=== PATIENT | male | born 1985 | race Two or more races ===

== ENCOUNTER 2023-04-19 21:11 | Emergency (ER) | payer OTHER ==
[~2023-04-19] VITALS: Ht 185.4 cm; Wt 109.0 kg
[2023-04-20] MEDS ORDERED: TETANUS-DIPTH-ACEL PERTUSSIS 0.5ML SYR Tdap IM ONE (00:30)
[2023-04-20] MEDS ORDERED: IBUP-1456 PO (00:37)
[2023-04-20] MEDS ORDERED: CEPH500C PO (00:37)
[2023-04-20 01:45] VITALS: BP 115/77; PULSE 84; RESP 18; TEMP 97.9; O2SAT 98
== END 2023-04-20 01:45 | disposition home or self-care (01) ==
LOC: ER 21:13
DX: S81.811A Laceration without foreign body, right lower leg, initial encounter (principal); I10 Essential (primary) hypertension; W18.09XA Striking against other object with subsequent fall, initial encounter; Y93.89 Activity, other specified; Y92.090 Kitchen in other non-institutional residence as the place of occurrence of the external cause; Y99.8 Other external cause status
CPT/HCPCS: 12002; 90471; 90715

== ENCOUNTER 2024-06-02 19:16 | Emergency (ER) | payer BC ==
[~2024-06-02] VITALS: Ht 188 cm; Wt 108.7 kg
[~2024-06-02 19:16] MED LIST: CEPH500C PO; IBUP-1456 PO
--- NOTE | 2024-06-02 20:43 | ED.PDOC ---
Back pain HPI HPI Comments 39 y.o male presents to the ED for a chief complaint of mid back pain that started today. Patient reports pain is sharp, worsens with movement and when sitting down. Patient states he might have strained his back when attempting to pass a bowel movement since he was constipated one week ago. Patient states today pain came on set spontaneously with no trauma or falls noted and reports developing sweats with elevated blood pressure of 163/96 at home. No fever, chills, abdominal pain, nausea or vomiting reported. No history of chronic back. Chief Complaint: Flank Pain Time Seen by MD: 20:24 Primary Care Provider: UNKNOWN Reviewed Notes: Nurses Notes, Medications, Allergies Allergies: Coded Allergies: NO KNOWN ALLERGIES (Unverified , 04/19/23) Home Meds Active Scripts Ibuprofen (Ibuprofen) 800 Mg Tab, 1 TAB PO TID PRN, #30 TAB 0 Refills Prov:KAREN BHARDWAJ 04/20/23 Cephalexin Monohydrate (Cephalexin) 500 Mg Cap, 1 CAP PO BID for 7 Days, #14 CAP 0 Refills Prov:KAREN BHARDWAJ 04/20/23 Information Source: Patient Mode of Arrival: Ambulatory Timing: Hours Duration: Since onset Quality: Sharp Onset: Spontaneous History of: None Modifying Factors: Nothing Past Medical History PAST MEDICAL HISTORY: HTN Surgical History: Denies all surgeries Family History Family History: Unknown Social History Smoker: Non-Smoker Alcohol: Denies ETOH Use Drugs: Denies Drug Use Lives In: Home Constitutional: denies: chills, diaphoresis, fatigue, fever, malaise, sweats, weakness, others EENTM: denies: blurred vision, double vision, ear bleeding, ear discharge, ear drainage, ear pain, ear ringing, eye pain, eye redness, hearing loss, mouth pain, mouth swelling, nasal discharge, nose bleeding, nose congestion, nose pain, photophobia, tearing, throat pain, throat swelling, voice changes, others Respiratory: denies: cough, hemoptysis, orthopnea, SOB at rest, shortness of breath, SOB with excertion, stridor, wheezing, others Cardiovascular: denies: chest pain, dizzy spells, diaphoresis, Dyspnea on exertion, edema, irregular heart beat, left arm pain, lightheadedness, palpitations, PND, syncope, others Gastrointestinal: denies: abdomen distended, abdominal pain, blood streaked bowels, constipated, diarrhea, dysphagia, difficulty swallowing, hematemesis, melena, nausea, poor appetite, poor fluid intake, rectal bleeding, rectal pain, vomiting, others Genitourinary: denies: burning, dysuria, flank pain, frequency, hematuria, incontinence, penile discharge, penile sore, pain, testicle pain, testicle swelling, urgency, others Neurological: denies: dizziness, fainting, headache, left sided numbness, left sided weakness, numbness, paresthesia, pre-existing deficit, right sided numbness, right sided weakness, seizure, speech problems, tingling, tremors, weakness, others Musculoskeletal: reports: back pain; denies: gout, joint pain, joint swelling, muscle pain, muscle stiffness, neck pain, others Integumetry: denies: bruises, change in color, change in hair/nails, dryness, laceration, lesions, lumps, rash, wounds, others Allergic/Immunocompromised: denies: Difficulty Healing, Frequent Infections, Hives, Itching, others Hematologic/Lymphatic: denies: anemia, blood clots, easy bleeding, easy bruising, swollen glands, others Endocrine: denies: excessive hunger, excessive sweating, excessive thirst, excessive urination, flushing, intolerance to cold, intolerance to heat, unexplained weight gain, unexplained weight loss, others Psychiatric: denies: anxiety, bipolar disorder, depression, hopeless, panic disorder, schizophrenia, sleepless, suicidal, others All Other Systems: Reviewed and Negative Physical Exam General Appearance: Moderate Distress HEENT: NOT DONE Neck: Normal Inspection Respiratory: Chest Non-Tender, Lungs Clear, No Accessory Muscle Use, No Respiratory Distress, Normal Breath Sounds Cardiovascular: Normal Peripheral Pulses, Regular Rate/Rhythm Breast Exam: Deferred Gastrointestinal: Non Tender, Soft Genitalia: Deferred Pelvic: Deferred Rectal: Deferred Extremities: Normal inspection Musculoskeletal : Location: Left Extremity Location: Back Apperance: Tenderness: Moderate, Other (papule muscle spasm to the lumbar region. 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 Was a procedure done?: No Back Pain Differential Dx Differential Diagnosis: Musculoskeletal Pain, Other (sprain, strain, muscle spasm ) X-Ray, Labs, Meds, VS Vital Signs Date Time Temp Pulse Resp B/P (MAP) Pulse Ox O2 Delivery O2 Flow Rate FiO2 06/02/24 19:54 97.8 61 20 158/86 (110) 10 X-Ray, Labs, Meds, VS Comment This 39 year male presents secondary to left-sided back pain that is worse with certain movements. He states it is somewhat better with rest and standing still. It occurred when he was pushing to have a bowel movement. He has no other complaints such as numbness tingling to his extremities. Denies retention guidance feces or urine. Denies radiation of his symptoms. Physical exam was significant for straightening of the lumbar lordosis and thoracic kyphosis. There is a palpable spasm of the paraspinal muscles. Palpation reveals recreates his pain. Fourteen, there is no other findings such as steps, deformity or pain to the vertebra. Secondary to the history and physical exam, with the patient has a spasm to his left lumbar paraspinal muscles. He will be discharged home with a prescription for Flexeril and Tylenol. He is asked to see for her Hydrea could be urine clear. He should have electrolyte rich diet. She consider gentle stretching. He was provided strict return instructions. If he has any new/worse with worsening symptoms, he is asked to return to the ER or call 911. He states his understanding. Otherwise, he should follow up with PCP next 1 2 days Time of 1ST Reevaluation: 20:37 Reevaluation 1ST: Unchanged Patient Education/Counseling: Diagnosis, Treatment, Prognosis Family Education/Counseling: No Family Present Departure 1 Departure Time of Disposition: 20:55 Impression: Primary Impression: Back pain Additional Impression: Back muscle spasm Disposition: HOME / SELF CARE / HOMELESS Condition: Good Discharged With: Self Critical Care Note Critical Care Time?: No Stability Stability form required: No I personally scribed for OG KITCHEN MD ([email or web address]) on 06/02/24 at 20:43. Electronically submitted by Jacey Lu ([facility]). OG KITCHEN MD Jun 02, 2024 20:43
[2024-06-02] MEDS ORDERED: CYCL-837 PO (20:54)
[2024-06-02] MEDS ORDERED: ACET1CAP14 PO (20:54)
[2024-06-02 23:05] VITALS: BP 158/97; PULSE 67; RESP 16; TEMP 98; O2SAT 97
== END 2024-06-02 23:07 | disposition home or self-care (01) ==
LOC: ER 19:16
DX: M54.9 Dorsalgia, unspecified (principal); M62.830 Muscle spasm of back; I10 Essential (primary) hypertension; Z79.899 Other long term (current) drug therapy

== ENCOUNTER 2024-06-15 10:40 | Inpatient (IN) | payer BC ==
[~2024-06-15] VITALS: Ht 185.4 cm; Wt 107.5 kg
--- NOTE | 2024-06-15 11:41 | ECG ---
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
[2024-06-15 12:31] LABS: Urine Bacteria None Seen /hpf (None Seen)
--- NOTE | 2024-06-15 12:34 | ED.PDOC ---
GI ASSESSMENT HPI Comments 39y M who presents to the ED for chief complaint of abdominal pain. Pt states he has been having R sided abdominal pain for the past 2 weeks. Pt stattes the pain is 10/10, constant, sharp in nature, radiating to the R flank, with no associated exacerbating or relieving factors. Pt otherwise has noted R sided flank pain, but otherwise denies nausea, vomiting, diarrhea, fever, cough, chills, dysuria, or hematuria. Pt states he was seen at 2 weeks prior for similar complaints and dx with muscle spasms but states he was not given pain Meds. Pt states he went to local clinic recently and dx with kidney stones. Pt otherwise noted to be in pain and is noted to ambulating with cane due to his pain. Pt otherwise denies any other symptoms at this time. Chief Complaint: Abdominal Pain Time Seen by MD: 12:31 Primary Care Provider: UNKNOWN Reviewed Notes: Nurses Notes, Medications, Allergies Allergies: Coded Allergies: NO KNOWN ALLERGIES (Unverified , 04/19/23) Home Meds Active Scripts Ibuprofen (Ibuprofen) 800 Mg Tab, 1 TAB PO TID PRN, #30 TAB 0 Refills Prov:KAREN BHARDWAJ 04/20/23 Cephalexin Monohydrate (Cephalexin) 500 Mg Cap, 1 CAP PO BID for 7 Days, #14 CAP 0 Refills Prov:KAREN BHARDWAJ 04/20/23 Information Source: Patient Mode of Arrival: Ambulatory Brought in by: self Timing: Weeks Duration: Since onset Prehospital treatment: None Quality: Aching, Sharp Vomitus: None Stool: Normal Severity: Moderate Recent: None Recent Hx of: None Pain Location: RLQ Modifying Factors: Nothing Associated sign and symptoms: Abdominal Pain, Other (flank pain) Past Medical History PAST MEDICAL HISTORY: HTN Surgical History: Denies all surgeries Family History Family History: Unknown Social History Smoker: Non-Smoker Alcohol: Denies ETOH Use Drugs: Denies Drug Use Lives In: Home Constitutional: denies: chills, diaphoresis, fatigue, fever, malaise, sweats, weakness, others EENTM: denies: blurred vision, double vision, ear bleeding, ear discharge, ear drainage, ear pain, ear ringing, eye pain, eye redness, hearing loss, mouth p ain, mouth swelling, nasal discharge, nose bleeding, nose congestion, nose pain, photophobia, tearing, throat pain, throat swelling, voice changes, others Respiratory: denies: cough, hemoptysis, orthopnea, SOB at rest, shortness of br eath, SOB with excertion, stridor, wheezing, others Cardiovascular: denies: chest pain, dizzy spells, diaphoresis, Dyspnea on exertion, edema, irregular heart beat, left arm pain, lightheadedness, palpitations, PND, syncope, others Gastrointestinal: reports: abdominal pain; denies: abdomen distended, blood streaked bowels, constipated, diarrhea, dysphagia, difficulty swallowing, hematemesis, melena, nausea, poor appetite, poor fluid intake, rectal bleeding, rectal pain, vomiting, others Genitourinary: reports: flank pain; denies: burning, dysuria, frequency, hematuria, incontinence, penile discharge, penile sore, pain, testicle pain, testicle swelling, urgency, others Neurological: denies: dizziness, fainting, headache, left sided numbness, left sided weakness, numbness, paresthesia, pre-existing deficit, right sided numbness, right sided weakness, seizure, speech problems, tingling, tremors, weakness, others Musculoskeletal: denies: back pain, gout, joint pain, joint swelling, muscle pain, muscle stiffness, neck pain, others Integumetry: denies: bruises, change in color, change in hair/nails, dryness, laceration, lesions, lumps, rash, wounds, others Allergic/Immunocompromised: denies: Difficulty Healing, Frequent Infections, Hives, Itching, others Hematologic/Lymphatic: denies: anemia, blood clots, easy bleeding, easy bruising, swollen glands, others Endocrine: denies: excessive hunger, excessive sweating, excessive thirst, excessive urination, flushing, intolerance to cold, intolerance to heat, unexplained weight gain, unexplained weight loss, others Psychiatric: denies: anxiety, bipolar disorder, depression, hopeless, panic dis order, schizophrenia, sleepless, suicidal, others All Other Systems: Reviewed and Negative Physical Exam General Appearance: Moderate Distress HEENT: Normal ENT Inspection, Pharynx Normal, TMs Normal Neck: Full Range of Motion, Non-Tender, Normal, Normal Inspection Respiratory: Chest Non-Tender, Lungs Clear, No Accessory Muscle Use, No Respiratory Distress, Normal Breath Sounds Cardiovascular: No Edema, No JVD, No Murmur, No Gallop, Normal Peripheral Pulses, Regular Rate/Rhythm Breast Exam: Deferred Gastrointestinal: No Organomegaly, No Pulsatile Mass, Normal Bowel Sounds, RUQ, Soft, Tenderness Genitalia: Deferred Pelvic: Deferred Rectal: Deferred Extremities: No calf tenderness, Normal capillary refill, Normal inspection, Normal range of motion, Non-tender, No pedal edema Musculoskeletal : Apperance: Normal Neurologic: Alert, cleaning crew member II-XII nml as Tested, No Motor Deficits, Normal Affect, Normal Mood, No Sensory Deficits Cerebellar Function: Normal Reflexes: Normal Skin: Dry, Normal Color, Warm Lymphatic: No Adenopathy Was a procedure done? Was a procedure done?: No GI differential Dx Differential Diagnosis: Appendicitis, Gastritis/PUD, Gastroenteritis, Pancreatitis, UTI, Urolithiasis, Dehydration, Stress Ulcer, Kidney Stone X-Ray, Labs, Meds, VS Vital Signs Date Time Temp Pulse Resp B/P (MAP) Pulse Ox O2 Delivery O2 Flow Rate FiO2 06/15/24 15:15 98.4 67 16 123/87 (99) 97 98.4 06/15/24 14:59 98.3 74 17 144/89 (107) 74 98.3 06/15/24 12:58 98.3 90 17 145/94 (111) 97 98.3 06/15/24 12:58 90 17 97 Room Air 06/15/24 11:26 77 06/15/24 11:24 97.9 127 19 176/137 (150) 98 Lab Test 06/15/24 13:15 06/15/24 12:28 Range/Units White Blood Count 8.0 4.4-10.8 10^3/uL Red Blood Count 4.74 4.5-5.90 10^6/uL Hemoglobin 15.7 13.5-17.5 g/dL Hematocrit 45.7 41.0-53.0 % Mean Corpuscular Volume 96.4 80.0-100.0 fL Mean Corpuscular Hemoglobin 33.0 H 28.0-32.0 pg Mean Corpuscular Hemoglobin Concent 34.2 32.0-36.0 g/dL Red Cell Distribution Width 13.8 11.8-14.3 % Platelet Count 365 140-450 10^3/uL Mean Platelet Volume 7.3 6.9-10.8 fL Neutrophils (%) (Auto) 69.5 37.0-80.0 % Lymphocytes (%) (Auto) 22.7 10.0-50.0 % Monocytes (%) (Auto) 6.1 0.0-12.0 % Eosinophils (%) (Auto) 1.3 0.0-7.0 % Basophils (%) (Auto) 0.4 0.0-2.0 % Neutrophils # (Auto) 5.6 1.6-8.6 10 ^3/uL Lymphocytes # (Auto) 1.8 0.4-5.4 10 ^3/uL Monocytes # (Auto) 0.5 0-1.3 10 ^3/uL Eosinophils # (Auto) 0.1 0-0.8 10 ^3/uL Basophils # (Auto) 0 0-0.2 10 ^3/uL Nucleated Red Blood Cells 0.0 % Sodium Level 141 136-145 mmol/L Potassium Level 3.8 3.5-5.1 mmol/L Chloride Level 105 98-107 mmol/L Carbon Dioxide Level 27 20-31 mmol/L Anion Gap 9 5-15 Blood Urea Nitrogen 13 9-23 mg/dL Creatinine 0.89 0.700-1.30 mg/dL Glomerular Filtration Rate Calc 111 >90 mL/min BUN/Creatinine Ratio 14.6 10.0-20.0 Serum Glucose 102 74-106 mg/dL Calcium Level 10.5 H 8.7-10.4 mg/dL Total Bilirubin 0.7 0.2-1.0 mg/dL Aspartate Amino Transferase (AST) 17 13-40 U/L Alanine Aminotransferase (ALT) 41 H 7-40 U/L Alkaline Phosphatase 102 46-116 U/L Total Protein 7.5 5.7-8.2 g/dL Albumin 4.7 3.2-4.8 g/dL Lipase 27 12-53 U/L Urine Color Colorless Yellow Urine Clarity Clear Clear Urine pH 6.0 5.0-9.0 Urine Specific [place] 1.006 1.001-1.035 Urine Protein Negative Negative Urine Ketones Negative Negative Urine Blood Negative Negative /uL Urine Nitrite Negative Negative Urine Bilirubin Negative Negative Urine Urobilinogen Normal Negative mg/dL Urine Leukocyte Esterase Negative Negative /uL Urine RBC None seen 0 - 3 /hpf Urine WBC <1 0 - 3 /hpf Urine Squamous Epithelial Cells None seen <5 /hpf Urine Bacteria None seen None Seen /hpf Urine Glucose Normal Normal mg/dL Current Medications Medications (Trade) Dose Ordered Sig/Alix Route Start Time Stop Time Status Last Admin Ketorolac Tromethamine (Toradol Injection) 30 mg ONCE ONCE IV 06/15/24 12:30 06/15/24 12:31 DC 06/15/24 13:27 Exam: CT CT AB PEL WO CON-NO ORAL OR IV IMPRESSION: 1. No acute abdominal or pelvic finding. 2. Mildly distended gallbladder. If of clinical concern, could be further evaluated with right upper quadrant ultrasound. The ultrasound of the gallbladder shows: IMPRESSION: 1. Small 5 mm gallbladder wall polyp. 2. Nonvisualization of the pancreas and IVC. HS:Y The patient's CBC is within limits The chemistry panel is within limits The urine test is negative The patient was given ketorolac 30 mg push pain At this time the patient was being admitted to the hospitalist We have discussed the findings with the patient Pain has been somewhat persistent Images Reviewed?: Images reviewed and evaluated by me Time of 1ST Reevaluation: 13:00 Reevaluation 1ST: Unchanged Patient Education/Counseling: Diagnosis, Treatment, Prognosis Family Education/Counseling: No Family Present Additional Information I reviewed the following notes from patient's past medical encounters: The following tests were ordered, and results were reviewed by me: EKGx 1, CBC, CMP, Lipase, UA, CT abdomen and pelvis without contrast, Toradol 30 mg, Additional Information was gathered from interviewing the following independent historians: none I reviewed and agreed with the following test results read by other providers: radiologist I discussed treatment and results with medical personnel and: patient Departure 1 Departure Time of Disposition: 16:32 Impression: Primary Impression: Intractable abdominal pain Additional Impression: Cholelithiasis Qualified Codes: K80.20 - Calculus of gallbladder without cholecystitis without obstruction Disposition: ADMITTED INPATIENT Admit to: Med Surg Condition: Fair Critical Care Note Critical Care Time?: No Stability Stability form required: Yes Unstable for transfer: ED Physician Assesment (Clinical assesment) Heart Score Heart Score: Heart Score Response (Comments) Value History N/A 0 EKG N/A 0 Age N/A 0 Risk Factors N/A 0 Troponin N/A 0 Total 0 I personally scribed for DORA CARLOS MD ([email or web address]) on 06/15/24 at 12:34. Electronically submitted by Acacia Otero ([email or web address]). I personally scribed for DORA CARLOS MD ([email or web address]) on 06/15/24 at 13:14. El ectronically submitted by Acacia Otero ([email or web address]). DORA CARLOS MD Jun 15, 2024 12:34
--- NOTE | 2024-06-15 13:04 | DVH ---
Exam: CT CT AB PEL WO CON-NO ORAL OR IV History: right abd pain Comparison Study: None available at time of dictation. TECHNIQUE: Multidetector CT of the abdomen was performed from lung bases to pubic symphysis. Imaging was performed without IV contrast. Axial, coronal and sagittal multiplanar reformats were obtained fr om the axial data set by the technologist. Radiation Dose Information: CT Dose: CTDI volume is 16.84 mGy. Dose-length product is 1114.59 mGy*cm FINDINGS: Evaluation of solid organs is limited due to lack of intravenous contrast use. Findings: Lung Bases: No acute or significant lung base finding. Normal heart size. No pleural or pericardial effusion. Liver: The liver is normal in size. No focal lesions. Gallbladder and Biliary Tree: The gallbladder is somewhat distended. Spleen: Unremarkable Pancreas: The pancreas is grossly normal in appearance. Adrenal Glands: Unremarkable Kidneys: Kidneys are grossly normal without calculi or hydronephrosis. Bladder: Grossly unremarkable for degree of distention. Bowel: The stomach is grossly normal in appearance. Small bowel and colon are normal in caliber and d istribution. The appendix is not visualized; however, no secondary findings of acute appendicitis id entified. Ascites: Absent Lymphadenopathy: No mesenteric, retroperitoneal or periportal lymphadenopathy. Abdominal Wall and Mesentery: Unremarkable. Vasculature: The visualized abdominal aorta is normal in size and caliber. Evaluation of abdominal a nd pelvic vessels is limited due to lack of intravenous contrast. Pelvic Organs: Unremarkable Musculoskeletal: No aggressive focal bony lesions, acute fractures or dislocation. Soft tissues: Unremarkable IMPRESSION: 1. No acute abdominal or pelvic finding. 2. Mildly distended gallbladder. If of clinical concern, could be further evaluated with right upper quadrant ultrasound. Radiation optimization: All CT scans at this facility use at least one of these dose optimization te chniques: automated exposure control mA and/or kV adjustment per patient size (includes targeted exa ms where dose is matched to clinical indication) or iterative reconstruction. HS:Y
[2024-06-15 13:10] LABS: Urine Blood Negative /uL (Negative); Urine Clarity Clear (Clear); Urine Color Colorless (Yellow); Urine Protein, UAD Negative (Negative); Urine Specific Gravity 1.006 (1.001-1.035); Urine Urobilinogen Normal (Negative); Urine WBC <1 /hpf (0 - 3)
[2024-06-15 13:25] LABS: Basophils # (auto) 0 10 ^3/uL (0-0.2); Basophils % (auto) 0.4 % (0.0-2.0); Eosinophils # (auto) 0.1 10 ^3/uL (0-0.8); Eosinophils % (auto) 1.3 % (0.0-7.0); Hematocrit 45.7 % (41.0-53.0); Hemoglobin 15.7 g/dL (13.5-17.5); Lymphocytes # (auto) 1.8 10 ^3/uL (0.4-5.4); Lymphocytes % (auto) 22.7 % (10.0-50.0); Mean Corpuscular Hgb Conc. 34.2 g/dL (32.0-36.0); Mean Corpuscular Volume 96.4 fL (80.0-100.0); Monocytes # (auto) 0.5 10 ^3/uL (0-1.3); Monocytes % (auto) 6.1 % (0.0-12.0); Neutrophils # (auto) 5.6 10 ^3/uL (1.6-8.6); Neutrophils % (auto) 69.5 % (37.0-80.0); Platelet Count (auto) 365 10^3/uL (140-450); Red Blood Cells 4.74 10^6/uL (4.5-5.90); Red Cell Distribution Width 13.8 % (11.8-14.3)
[2024-06-15] MEDS: KETOROLAC TROMETH 30 MG/ML 1ML VIAL IV ONE (13:27)
[2024-06-15 13:43] LABS: Albumin 4.7 g/dL (3.2-4.8); Alkaline Phosphatase 102 U/L (46-116); Anion Gap 9 (5-15); Aspartate Aminotransferase 17 U/L (13-40); Bilirubin, Total 0.7 mg/dL (0.2-1.0); Carbon Dioxide 27 mmol/L (20-31); Chloride 105 mmol/L (98-107); Glucose 102 mg/dL (74-106); Lipase 27 U/L (12-53); Potassium 3.8 mmol/L (3.5-5.1); Sodium 141 mmol/L (136-145); Total Protein 7.5 g/dL (5.7-8.2)
[2024-06-15 13:51] LABS: Alanine Aminotransferase 41 U/L (7-40); Calcium 10.5 mg/dL (8.7-10.4)
[2024-06-15 14:02] LABS: BUN/Creatinine Ratio 14.6 (10.0-20.0); Blood Urea Nitrogen 13 mg/dL (9-23)
[2024-06-15 16:00] VITALS: PULSE 76; RESP 16; O2SAT 97
--- NOTE | 2024-06-15 16:30 | DVH ---
ULTRASOUND ABDOMEN COMPLETE INDICATION: pain TECHNIQUE: Multiple real-time sonographic images of the abdomen were obtained. COMPARISON: CT abdomen 06/15/2024 FINDINGS: [Findings] The visualized liver parenchyma appears homogenous . The liver measures 17.9 cm. No discrete hep atic lesion or intrahepatic biliary ductal dilatation not seen on the current study. There is a 5 mm gallbladder wall polyp. There is no evidence of gallstones, gallbladder wall thickeni ng or pericholecystic fluid. The common biliary duct is not dilated. The right kidney measures 11.3 cm length. The left kidney measures 10.6 cm. No sonographic evide nce of nephrolithiasis or hydronephrosis. The spleen measures 9.0 cm and appears within normal limits. Pancreas and IVC are obscured by bowel gas. The visualized portions of the abdominal aorta are grossly unremarkable. IMPRESSION: 1. Small 5 mm gallbladder wall polyp. 2. Nonvisualization of the pancreas and IVC. HS:Y
[2024-06-15] MEDS ORDERED: GABA-1251 PO (17:24)
[2024-06-15] MEDS ORDERED: LORA-483 PO (17:24)
[2024-06-15] MEDS ORDERED: LOSA100T33 PO (17:24)
[2024-06-15] MEDS ORDERED: TAMS1CAP25 PO (17:25)
[2024-06-15] MEDS ORDERED: DOCUSATE SOD 100 MG CAP PO PRN (17:30)
[2024-06-15] MEDS ORDERED: ACETAMINOPHEN 325 MG TAB PO PRN (17:30)
--- NOTE | 2024-06-15 17:49 | DVHHP2 ---
History of Present Illness Reason for Visit: Abdominal Pain History of Present Illness Ion Guillen, is a 39-year-old male with past medical history of hypertension, and knee pain that came to the ER due to abdominal pain. Patient states that he has been having right lower quadrant abdominal pain that radiates to his right flank for about 2 weeks. He was seen here in the ER about 2 weeks ago and diagnosed with muscle pain. The next day he went to an urgent care who told him he has a kidney stone. They started him on Flomax, gave him a referral to a urologist and sent him home. He came back today because he is not able to see the urologist until June and he is still experiencing the pain. CT of abd/pe lvis as well as abdominal ultrasound were completed and both came back normal, no kidney stone noted. Cardiovascular: HTN Past Surgical History: None Family History: None Smoke: No ALCOHOL: rare Drugs: None Lives: with Family Domestic Violence: Neg Review of Systems Constitutional: No: Fever, Chills, Sweats, Weakness, Malaise, Other Eyes: No: Pain, Vision change, Conjunctivae inflammation, Eyelid inflammation, Other, Redness ENT: No: Ear pain, Ear discharge, Nose pain, Nose discharge, Nose congestion, Mouth pain, Mouth swelling, Throat pain, Throat swelling, Other Respiratory: No: Cough, Dry, Shortness of breath, SOB with excertion, Wheezing, Hemoptysis, Pleuritic Pain, Sputum, Wheezing, Other Cardiovascular: No: Chest Pain, Palpitations, Orthopnea, Paroxysmal Noc. Dyspnea, Edema, Lt Headedness, Other Gastrointestinal: Abdominal Pain (that radiates to right flank); No: Nausea, Vomiting, Diarrhea, Constipation, Melena, Hematochezia, Other Genitourinary: No Dysuria, No Frequency, No Incontinence, No Hematuria, No Retention, No Other Musculoskeletal: No: other, neck pain, shoulder pain, arm pain, back pain, hand pain, leg pain, foot pain Skin: No: Rash, Lesions, Jaundice, Bruising, Other Neurological: No: Weakness, Numbness, Incoordination, Change in speech, Confusion, Seizures, Other Allergies: Coded Allergies: NO KNOWN ALLERGIES (Unverified , 04/19/23) Medications Current Medications Medications Dose Ordered Sig/Alix Route Start Time Stop Time Status Last Admin Dose Admin Sodium Chloride 10 ml Q8HR IV 06/15/24 22:00 UNV Acetaminophen/ Hydrocodone Bitart 1 tab Q4HP PRN PO 06/15/24 17:30 UNV Ondansetron HCl 4 mg Q4HP PRN IV 06/15/24 17:30 UNV Docusate Sodium 100 mg BIDPRN PRN PO 06/15/24 17:30 UNV Acetaminophen 650 mg Q6HP PRN PO 06/15/24 17:30 UNV Exam Vital Signs Vital Signs Date Time Temp Pulse Resp B/P (MAP) Pulse Ox O2 Delivery O2 Flow Rate FiO2 06/15/24 15:15 98.4 67 16 123/87 (99) 97 98.4 06/15/24 12:58 Room Air General Appearance: Alert, Oriented X3, Cooperative, mild distress HEENT: Atraumatic Respiratory: Clear to auscultation, Normal air movement Cardiovascular: Regular rate, Normal S2, No murmurs Abdominal: Normal bowel sounds, Soft, Other (C/O right abdominal pain that radiate to right flank) Extremities: No clubbing, No cyanosis, No edema, Normal pulses Skin: No rashes, No breakdown, No significant lesion Neuro: Normal gait (Uses a cane), Normal speech, Strength at 5/5 X4 ext, Normal tone Psych/Mental Status: Mental status NL, Mood NL Labs/Xrays Labs Test 06/15/24 13:15 06/15/24 12:28 Range/Units White Blood Count 8.0 4.4-10.8 10^3/uL Red Blood Count 4.74 4.5-5.90 10^6/uL Hemoglobin 15.7 13.5-17.5 g/dL Hematocrit 45.7 41.0-53.0 % Mean Corpuscular Volume 96.4 80.0-100.0 fL Mean Corpuscular Hemoglobin 33.0 H 28.0-32.0 pg Mean Corpuscular Hemoglobin Concent 34.2 32.0-36.0 g/dL Red Cell Distribution Width 13.8 11.8-14.3 % Platelet Count 365 140-450 10^3/uL Mean Platelet Volume 7.3 6.9-10.8 fL Neutrophils (%) (Auto) 69.5 37.0-80.0 % Lymphocytes (%) (Auto) 22.7 10.0-50.0 % Monocytes (%) (Auto) 6.1 0.0-12.0 % Eosinophils (%) (Auto) 1.3 0.0-7.0 % Basophils (%) (Auto) 0.4 0.0-2.0 % Neutrophils # (Auto) 5.6 1.6-8.6 10 ^3/uL Lymphocytes # (Auto) 1.8 0.4-5.4 10 ^3/uL Monocytes # (Auto) 0.5 0-1.3 10 ^3/uL Eosinophils # (Auto) 0.1 0-0.8 10 ^3/uL Basophils # (Auto) 0 0-0.2 10 ^3/uL Nucleated Red Blood Cells 0.0 % Sodium Level 141 136-145 mmol/L Potassium Level 3.8 3.5-5.1 mmol/L Chloride Level 105 98-107 mmol/L Carbon Dioxide Level 27 20-31 mmol/L Anion Gap 9 5-15 Blood Urea Nitrogen 13 9-23 mg/dL Creatinine 0.89 0.700-1.30 mg/dL Glomerular Filtration Rate Calc 111 >90 mL/min BUN/Creatinine Ratio 14.6 10.0-20.0 Serum Glucose 102 74-106 mg/dL Calcium Level 10.5 H 8.7-10.4 mg/dL Total Bilirubin 0.7 0.2-1.0 mg/dL Aspartate Amino Transferase (AST) 17 13-40 U/L Alanine Aminotransferase (ALT) 41 H 7-40 U/L Alkaline Phosphatase 102 46-116 U/L Total Protein 7.5 5.7-8.2 g/dL Albumin 4.7 3.2-4.8 g/dL Lipase 27 12-53 U/L Urine Color Colorless Yellow Urine Clarity Clear Clear Urine pH 6.0 5.0-9.0 Urine Specific [place] 1.006 1.001-1.035 Urine Protein Negative Negative Urine Ketones Negative Negative Urine Blood Negative Negative /uL Urine Nitrite Negative Negative Urine Bilirubin Negative Negative Urine Urobilinogen Normal Negative mg/dL Urine Leukocyte Esterase Negative Negative /uL Urine RBC None seen 0 - 3 /hpf Urine WBC <1 0 - 3 /hpf Urine Squamous Epithelial Cells None seen <5 /hpf Urine Bacteria None seen None Seen /hpf Urine Glucose Normal Normal mg/dL ULTRASOUND ABDOMEN COMPLETE FINDINGS: [Findings] The visualized liver parenchyma appears homogenous . The liver measures 17.9 cm. No discrete hepatic lesion or intrahepatic biliary ductal dilatation not seen on the current study. There is a 5 mm gallbladder wall polyp. There is no evidence of gallstones, gallbladder wall thickening or pericholecystic fluid. The common biliary duct is not dilated. The right kidney measures 11.3 cm length. The left kidney measures 10.6 cm. No sonographic evidence of nephrolithiasis or hydronephrosis. The spleen measures 9.0 cm and appears within normal limits. Pancreas and IVC are obscured by bowel gas. The visualized portions of the abdominal aorta are grossly unremarkable. IMPRESSION: 1. Small 5 mm gallbladder wall polyp. 2. Nonvisualization of the pancreas and IVC. Exam: CT CT AB PEL WO CON-NO ORAL OR IV FINDINGS: Evaluation of solid organs is limited due to lack of intravenous contrast use. Findings: Lung Bases: No acute or significant lung base finding. Normal heart size. No pleural or pericardial effusion. Liver: The liver is normal in size. No focal lesions. Gallbladder and Biliary Tree: The gallbladder is somewhat distended. Spleen: Unremarkable Pancreas: The pancreas is grossly normal in appearance. Adrenal Glands: Unremarkable Kidneys: Kidneys are grossly normal without calculi or hydronephrosis. Bladder: Grossly unremarkable for degree of distention. Bowel: The stomach is grossly normal in appearance. Small bowel and colon are normal in caliber and distribution. The appendix is not visualized; however, no secondary findings of acute appendicitis identified. Ascites: Absent Lymphadenopathy: No mesenteric, retroperitoneal or periportal lymphadenopathy. Abdominal Wall and Mesentery: Unremarkable. Vasculature: The visualized abdominal aorta is normal in size and caliber. Evaluation of abdominal and pelvic vessels is limited due to lack of intravenous contrast. Pelvic Organs: Unremarkable Musculoskeletal: No aggressive focal bony lesions, acute fractures or dislocation. Soft tissues: Unremarkable IMPRESSION: 1. No acute abdominal or pelvic finding. 2. Mildly distended gallbladder. If of clinical concern, could be further evaluated with right upper quadrant ultrasound. Assessment/Plan Assessment/Plan Assessment: Intractable abdominal pain, Hypertension, Chronic knee pain, Plan: Admit to Med-Surg, Consider GI consult is symptoms do not improve, IV hydration, Pain management, Home medications reconciled, Plan discussed with: Patient My Orders Orders - JUSTO GERMAIN Procedure Category Date Status Time Abdomen Complete US 06/15/24 Resulted Sonogram 15:42 Admit ADMIT 06/15/24 Transmitted 17:21 Code Status CODE 06/15/24 Transmitted 17:21 2 Gm Sodium Diet DIET 06/15/24 Transmitted Dinner Sodium Chloride Lock PHA 06/15/24 Logged (Saline Lock Ns) 22:00 Hydrocodone-Acet PHA 06/15/24 Logged 5/325mg Tab ([place] 17:30 Ondansetron Hcl PHA 06/15/24 Logged (Zofran) 17:30 Docusate Sodium PHA 06/15/24 Logged Capsule ([place]ace 17:30 Condition: Serious MIGUEL ANGEL 06/15/24 In Process 17:21 Acetaminophen Tablet PHA 06/15/24 Logged (Tylenol Tablet) 17:30 Gabapentin Capsule PHA 06/15/24 Transmitted (Neurontin Capsule) 22:00 Loratadine Tablet PHA 06/16/24 Transmitted (Claritin Tablet) 10:00 (Nf) Losartan PHA 06/16/24 Transmitted Potassium & Hydrochlo 10:00 Tamsulosin PHA 06/16/24 Transmitted Hydrochloride (Flomax) 10:00 Date of Service: Jun 15, 2024 Billing Provider: JUSTO GERMAIN Common Visit Codes: [id number] INP/OBS CARE (MOD) JUSTO GERMAIN Jun 15, 2024 17:49
[2024-06-15] MEDS: SODIUM CHLORIDE 0.9% 1,000 ML IV ONE (18:27)
[2024-06-15] MEDS: HYDROcodone-ACET 5/325MG TAB PO PRN (18:48)
[2024-06-15 19:35] VITALS: PULSE 68; RESP 16; O2SAT 98
[2024-06-15] MEDS: GABAPENTIN 400 MG CAP PO SCH (21:34)
[2024-06-15] MEDS: SODIUM CHLOR 0.9% PF (SALINE LOCK) 10ML VIAL/SYR IV SCH (21:34)
[2024-06-15] MEDS: ONDANSETRON HCL 4 MG/2 ML VIAL IV PRN (22:50)
[2024-06-16] VITALS (8 sets, daily range): BP systolic 115–149; BP diastolic 59–84; PULSE 52–71; RESP 15–20; TEMP 97.5–98.3; O2SAT 97–99
[2024-06-16] MEDS: KETOROLAC TROMETH 30 MG/ML 1ML VIAL IV ONE (04:50)
[2024-06-16] MEDS: TAMSULOSIN HYDROCHLORIDE 0.4 MG CAP PO SCH (09:48)
[2024-06-16] MEDS: LORATADINE 10 MG TAB PO SCH (09:49)
[2024-06-16] MEDS: LOSARTAN POTASSIUM 50 MG TAB PO SCH (09:51)
[2024-06-16] MEDS: hydroCHLOROthiazide 25 MG TAB PO SCH (09:51)
--- NOTE | 2024-06-16 11:25 | DVHPNRES ---
Progress Note Date Seen: Jun 16, 2024 Resident Creating Document: CRUZITO JAY JEB Has the PT tested + for MRSA If YES, has PT been informed?: No Medical Necessity Reason Pt with a Central, PICC or Fol: No Subjective Review of Systems Ion Guillen, is a 39-year-old male with past medical history of hypertension, and knee pain that came to the ER due to abdominal pain. Patient states that he has been having right lower quadrant abdominal pain that radiates to his right flank for about 2 weeks. He was seen here in the ER about 2 weeks ago and diagnosed with muscle pain. The next day he went to an urgent care who told him he has a kidney stone. They started him on Flomax, gave him a referral to a urologist and sent him home. He came back today because he is not able to see the urologist until June and he is still experiencing the pain. CT of abd/pelvis as well as abdominal ultrasound were completed and both came back normal, no kidney stone noted. PMHx: Hypertension PSHx: Unremarkable Family history: Unremarkable Social history: Patient denies smoking, drink occasionally, denies any other drug use. Home medication: Gabapentin and losartan Allergic history: Unremarkable Today, patient seen and examined at the bedside. Patient is still complaining of right flank pain. Patient reports: No new complaints Changes from previous H/P or p: No Changes Objective vital signs Vital Sign Date Time Temp Pulse Resp B/P (MAP) Pulse Ox O2 Delivery O2 Flow Rate FiO2 06/16/24 09:51 134/61 06/16/24 09:12 97.5 55 15 97 97.5 06/16/24 03:18 Room Air* 0 21 Total Intake and Output 06/15/24 06/15/24 06/16/24 15:00 23:00 07:00 Intake Total 910 ml 90 ml Output Total 0 ml Balance 910 ml 90 ml medications Current Medications Medications Dose Ordered Sig/Alix Route Start Time Stop Time Status Last Admin Dose Admin Sodium Chloride 10 ml Q8HR IV 06/15/24 22:00 06/16/24 05:32 10 ML Acetaminophen/ Hydrocodone Bitart 1 tab Q4HP PRN PO 06/15/24 17:30 06/16/24 09:50 1 TAB Ondansetron HCl 4 mg Q4HP PRN IV 06/15/24 17:30 06/15/24 22:50 4 MG Docusate Sodium 100 mg BIDPRN PRN PO 06/15/24 17:30 Acetaminophen 650 mg Q6HP PRN PO 06/15/24 17:30 Gabapentin 400 mg BID PO 06/15/24 22:00 06/16/24 09:48 400 MG Loratadine 10 mg DAILY PO 06/16/24 10:00 06/16/24 09:49 10 MG Losartan Potassium 100 mg DAILY PO 06/16/24 10:00 06/16/24 09:51 100 MG Tamsulosin HCl 0.4 mg DAILY PO 06/16/24 10:00 06/16/24 09:48 0.4 MG Hydrochlorothiazide 25 mg DAILY PO 06/16/24 10:00 06/16/24 09:51 25 MG Examination General Appearance: Alert, Oriented X3, Cooperative, No acute distress HEENT: Atraumatic, PERRLA, EOMI, Mucous membrane moist/pink Respiratory: Clear to auscultation, Normal air movement Cardiovascular: Regular rate, Normal S1, Normal S2, No murmurs, no chest wall tenderness Abdominal: Right lower quadrant tenderness Extremities: No clubbing, No cyanosis, No edema, Normal pulses, No tenderness/swelling Skin: No rashes, No breakdown, No significant lesion Neuro: Normal gait, Normal speech, Strength at 5/5 X4 ext, Normal tone, Sensation intact, Cranial nerves 3-12 NL, Reflexes 2+ Psych/Mental Status: Mental status NL, Mood NL laboratory and microbiology Laboratory Tests 06/15/24 13:15 Test 06/15/24 13:15 Range/Units Serum Glucose 102 74-106 mg/dL Labs and/or images reviewed: Labs reviewed by me, Image(s) reviewed by me Problem List/Assessment/Plan Problem List/Assessment/Plan Intractable abdominal pain, likely due to gallbladder polyp Ruled out kidney stone CT scan of abdominal shows no renal stone Ultrasound shows small 5 mm gallbladder wall polyp CT abdomen shows distended gallbladder Surgery is on the board, recommended pelvic MRI and lumbar spine MRI Spinal stenosis MRI shows Multilevel degenerative disease. Severe central canal stenosis L4-5. Mild central canal stenosis L3-4. Multilevel neural foraminal stenosis as above Continue gabapentin and [place] Morphine 0.5 mg q.6 hours as needed Hypertension Continue losartan 100 mg daily, tamsulosin 0.5 mg daily, and hydrochlorothiazide 25 mg daily DIET: Cardiac diet DVT PROPHYLAXIS: Lovenox 40 mg subcutaneous daily GI PROPHYLAXIS:: Not indicated for PPI BOWEL REGIMEN: Docusate 100 mg b.i.d. p.r.n. ACP: Goal of care discussed for more than 25 minutes with the patient, full code DISPOSITION: Med surg Patient's status discussed with patient. Case discussed with Dr. Angel Plan discussed with: Patient, Other (RN) CRUZITO JAY [facility] [[email or web address]]CHAO Jun 16, 2024 11:25
[2024-06-16] MEDS: GADOTERATE MEG 10 MMOL/20ml INJ (0.5MMOL/ml) IV ONE (13:57)
--- NOTE | 2024-06-16 15:35 | DVH ---
PROCEDURE: MRI LUMBAR SPINE WO CONTRAST INDICATION: RT SIDE BACK PAIN Exam Date: 06/16/2024 02:56 PM COMPARISON: None TECHNIQUE: MRI lumbar spine without intravenous contrast. FINDINGS: The lumbar alignment is intact. There are degenerative endplate changes including modic endplate ch anges with anterior and lateral osteophytes throughout the lumbar spine. The visualized distal spinal cord and conus medullaris are within normal limits. The conus medullaris appears to terminate withi n normal limits. The visualized retroperitoneal and paraspinal soft tissues are unremarkable. The following axial levels are detailed below: T12-L1: There is a mild circumferential disc bulge. No significant central canal or neuroforaminal s tenosis. L1-L2: There is a moderate circumferential disc bulge associated with mild to moderate bilateral ne uroforaminal stenosis. No significant central canal stenosis. L2-L3: There is a moderate circumferential disc bulge associated with mild to moderate bilateral ne uroforaminal stenosis. No significant central canal stenosis. L3-L4: There is a moderate circumferential disc bulge associated with mild to moderate bilateral ne uroforaminal stenosis. Central canal measures 9 mm. L4-L5: There is a severe circumferential disc bulge narrowing the central canal to 7 mm with associ ated moderate bilateral neuroforaminal stenosis. L5-S1: There is a moderate circumferential disc bulge associated with mild to moderate bilateral celina roforaminal stenosis. No significant central canal stenosis. IMPRESSION: 1. Multilevel degenerative disease. Severe central canal stenosis L4-5. Mild central canal stenosis L 3-4. Multilevel neural foraminal stenosis as above. HS:Y
--- NOTE | 2024-06-16 16:08 | DVH ---
MRI Abdomen, with and without IV Contrast Exam Date: 06/16/2024 02:25 PM Comparison: None History: Right flank pain, right back pain Technique: Multisequence multiplanar MRI images were obtained of the abomen. 20 mL of clariscan was administered intravenously during this examination. Initial imaging is obtain ed without intravenous contrast. Findings: Liver: Less than 5 mm hepatic cysts. Spleen: Unremarkable. Pancreas: The pancreas is normal in appearance without focal lesions. Gallbladder and ducts: Gallbladder is normal in appearance. The cystic duct, right and left hepatic ducts, common hepatic duct, and common bile ducts are unremarkable. The pancreatic duct is within n ormal limits. Adrenal glands: Unremarkable. Kidneys: Normal enhancement without suspicious lesions or hydronephrosis. Visualized bowel: Grossly unremarkable. Vasculature: Unremarkable. Lymphadenopathy: No evidence for lymphadenopathy. Ascites: Absent. Musculoskeletal: Degenerative changes in the lumbar spine. IMPRESSION: 1. Few punctate hepatic cysts. Otherwise unremarkable MRI of the abdomen. No hydronephrosis. Exam: MRI MRI ABD PLEVIS W/WO CONT History: Right flank pain, right back pain Comparison: None Technique: Multisequence multiplanar MRI images of the pelvis were performed. CONTRAST: Type of contrast: Clariscan Contrast injected: 20 ml Findings: Bladder: Unremarkable. Visualized bowel: Visualized portion of the bowel is grossly unremarkable without evidence for obstru ction. Pelvic organs: Unremarkable Lymphadenopathy: No evidence for pelvic lymphadenopathy. Vasculature: There is normal enhancement of the pelvic vasculature. Ascites: Absent. Musculoskeletal: The bone marrow signal is preserved. IMPRESSION: 1. Unremarkable pelvic MRI. HS:Y
[2024-06-16] MEDS ORDERED: MORPHINE SULFATE INJ 2 MG/ml SYRG IV ONE (17:30)
[2024-06-16] MEDS: MORPHINE SULFATE INJ 2 MG/ml SYRG IV ONE (18:01)
[2024-06-16] MEDS: MORPHINE SULFATE INJ 2 MG/ml SYRG IV PRN (22:14)
[2024-06-17 01:00] VITALS: BP 109/68; PULSE 60; RESP 20; TEMP 98.1; O2SAT 98
[2024-06-17 05:00] VITALS: BP 119/74; PULSE 58; RESP 20; TEMP 98; O2SAT 96
[2024-06-17 06:34] LABS: Basophils # (auto) 0 10 ^3/uL (0-0.2); Basophils % (auto) 0.5 % (0.0-2.0); Eosinophils # (auto) 0.1 10 ^3/uL (0-0.8); Eosinophils % (auto) 2.4 % (0.0-7.0); Hematocrit 42.8 % (41.0-53.0); Hemoglobin 15.2 g/dL (13.5-17.5); Lymphocytes # (auto) 1.7 10 ^3/uL (0.4-5.4); Lymphocytes % (auto) 27.9 % (10.0-50.0); Mean Corpuscular Hemoglobin 33.6 pg (28.0-32.0); Mean Corpuscular Hgb Conc. 35.5 g/dL (32.0-36.0); Mean Corpuscular Volume 94.5 fL (80.0-100.0); Monocytes # (auto) 0.6 10 ^3/uL (0-1.3); Monocytes % (auto) 9.7 % (0.0-12.0); Neutrophils # (auto) 3.7 10 ^3/uL (1.6-8.6); Neutrophils % (auto) 59.5 % (37.0-80.0); Platelet Count (auto) 324 10^3/uL (140-450); Red Blood Cells 4.53 10^6/uL (4.5-5.90); Red Cell Distribution Width 13.7 % (11.8-14.3); White Blood Cell 6.3 10^3/uL (4.4-10.8)
[2024-06-17 06:56] LABS: Alanine Aminotransferase 31 U/L (7-40); Albumin 4.4 g/dL (3.2-4.8); Alkaline Phosphatase 92 U/L (46-116); Anion Gap 8 (5-15); Aspartate Aminotransferase 22 U/L (13-40); BUN/Creatinine Ratio 14.3 (10.0-20.0); Blood Urea Nitrogen 14 mg/dL (9-23); Calcium 10.4 mg/dL (8.7-10.4); Carbon Dioxide 25 mmol/L (20-31); Chloride 107 mmol/L (98-107); Sodium 140 mmol/L (136-145)
[2024-06-17 06:57] LABS: Total Protein 7.1 g/dL (5.7-8.2)
[2024-06-17 07:06] LABS: Bilirubin, Total 1.4 mg/dL (0.2-1.0); Glucose 107 mg/dL (74-106); Potassium 3.3 mmol/L (3.5-5.1)
[2024-06-17 08:37] VITALS: BP 115/74; PULSE 60; RESP 16; TEMP 98.2; O2SAT 95
[2024-06-17] MEDS: POTASSIUM EFFERVESENT TAB 25 MEQ GT ONE (11:18)
[2024-06-17 13:00] VITALS: BP 116/74; PULSE 76; RESP 20; TEMP 98.7; O2SAT 95
[2024-06-17] MEDS ORDERED: IBUP1TAB5 PO (14:42)
[2024-06-17] MEDS ORDERED: PANT40TA57 PO (14:42)
[2024-06-17 14:53] VITALS: BP 149/74; TEMP 37.1
--- NOTE | 2024-06-17 20:39 | DVHDSRES ---
Discharge Summary Date of Admission Resident Creating Document: CRUZITO JAY RESDIENT Jun 15, 2024 at 17:21 Date of Discharge: Jun 17, 2024 Admitting Diagnosis Intractable abdominal pain Labs/Diagnostic Data: Laboratory Results Test 06/17/24 05:58 06/16/24 13:49 06/15/24 13:15 06/15/24 12:28 White Blood Count 6.3 10^3/uL (4.4-10.8) Red Blood Count 4.53 10^6/uL (4.5-5.90) Hemoglobin 15.2 g/dL (13.5-17.5) Hematocrit 42.8 % (41.0-53.0) Mean Corpuscular Volume 94.5 fL (80.0-100.0) Mean Corpuscular Hemoglobin 33.6 pg (28.0-32.0) Mean Corpuscular Hemoglobin Concent 35.5 g/dL (32.0-36.0) Red Cell Distribution Width 13.7 % (11.8-14.3) Platelet Count 324 10^3/uL (140-450) Mean Platelet Volume 7.7 fL (6.9-10.8) Neutrophils (%) (Auto) 59.5 % (37.0-80.0) Lymphocytes (%) (Auto) 27.9 % (10.0-50.0) Monocytes (%) (Auto) 9.7 % (0.0-12.0) Eosinophils (%) (Auto) 2.4 % (0.0-7.0) Basophils (%) (Auto) 0.5 % (0.0-2.0) Neutrophils # (Auto) 3.7 10 ^3/uL (1.6-8.6) Lymphocytes # (Auto) 1.7 10 ^3/uL (0.4-5.4) Monocytes # (Auto) 0.6 10 ^3/uL (0-1.3) Eosinophils # (Auto) 0.1 10 ^3/uL (0-0.8) Basophils # (Auto) 0 10 ^3/uL (0-0.2) Nucleated Red Blood Cells 0.0 % Sodium Level 140 mmol/L (136-145) Potassium Level 3.3 mmol/L (3.5-5.1) Chloride Level 107 mmol/L (98-107) Carbon Dioxide Level 25 mmol/L (20-31) Anion Gap 8 (5-15) Blood Urea Nitrogen 14 mg/dL (9-23) Creatinine 0.98 mg/dL (0.700-1.30) Glomerular Filtration Rate Calc 100 mL/min (>90) BUN/Creatinine Ratio 14.3 (10.0-20.0) Serum Glucose 107 mg/dL (74-106) Calcium Level 10.4 mg/dL (8.7-10.4) Total Bilirubin 1.4 mg/dL (0.2-1.0) Aspartate Amino Transferase (AST) 22 U/L (13-40) Alanine Aminotransferase (ALT) 31 U/L (7-40) Alkaline Phosphatase 92 U/L (46-116) Total Protein 7.1 g/dL (5.7-8.2) Albumin 4.4 g/dL (3.2-4.8) Plasma/Serum Blood Alcohol < 3.0 mg/dL (<10) Lipase 27 U/L (12-53) Urine Color Colorless (Yellow) Urine Clarity Clear (Clear) Urine pH 6.0 (5.0-9.0) Urine Specific Post 1.006 (1.001-1.035) Urine Protein Negative (Negative) Urine Ketones Negative (Negative) Urine Blood Negative /uL (Negative) Urine Nitrite Negative (Negative) Urine Bilirubin Negative (Negative) Urine Urobilinogen Normal mg/dL (Negative) Urine Leukocyte Esterase Negative /uL (Negative) Urine RBC None seen /hpf (0 - 3) Urine WBC <1 /hpf (0 - 3) Urine Squamous Epithelial Cells None seen /hpf (<5) Urine Bacteria None seen /hpf (None Seen) Urine Glucose Normal mg/dL (Normal) Other Laboratory Tests 06/17/24 05:58 Brief Hx & Hospital Course: Ion Guillen, is a 39-year-old male with past medical history of hypertension, and knee pain that came to the ER due to abdominal pain. Patient states that he has been having right lower quadrant abdominal pain that radiates to his right flank for about 2 weeks. He was seen here in the ER about 2 weeks ago and diagnosed with muscle pain. The next day he went to an urgent care who told him he has a kidney stone. They started him on Flomax, gave him a referral to a urologist and sent him home. He came back today because he is not able to see the urologist until June and he is still experiencing the pain. CT of abd/pelvis as well as abdominal ultrasound were completed and both came back normal, no kidney stone noted. PMHx: Hypertension PSHx: Unremarkable Family history: Unremarkable Social history: Patient denies smoking, drink occasionally, denies any other drug use. Home medication: Gabapentin and losartan Allergic history: Unremarkable On physical examination during admission, was significant for the lower abdominal and back tenderness otherwise insignificant. Lab studies were significant for hypokalemia. During hospital admission the patient was given pain killers including morphine, and [place]. And home medication were continued. For the possible of renal stone, abdominal CT scan was performed which was showing stone, it was showing gallbladder 5 mm polyps. Surgery was consulted, and performed abdominal MRI which was normal. Lumbar spine MRI was performed, showing severe multiple liver spinal stenosis. On 06/17, the patient was clinically and hemodynamically stable. Discharge plan discussed with the patient and the patient was discharged Discharge plan: Follow up with the neurosurgery on outpatient basis Follow up with the PCP within 1 week of the discharge Ibuprofen for the pain as needed Protonix for the heartburn as needed Continue home medicine Consults/Reason for consult GI: For intractable abdominal pain, and gallbladder polyp Operations or Procedures [place] [id number] Ph: [phone] DIAGNOSTIC IMAGING Diagnostic Imaging Report : [id number] Signed PATIENT: ION GUILLEN ACCT: [id number] UNIT: [id number] : 1985 LOC: [facility] ROOM / BED: [facility] A AGE / SEX: 39 / M ADM STATUS: ADM IN SERVICE 1453 ORDERING PHYSICIAN: YAJAIRA PENALOZA MD PROCEDURE(s): MSL - LUMBAR SPINE WO CONTRAST REASON: RT SIDE BACK PAIN ORDER NUMBER(s): [id number], ACCESSION NUMBER(s): [id number] PROCEDURE: MRI LUMBAR SPINE WO CONTRAST INDICATION: RT SIDE BACK PAIN Exam Date: 06/16/2024 02:56 PM COMPARISON: None TECHNIQUE: MRI lumbar spine without intravenous contrast. FINDINGS: The lumbar alignment is intact. There are degenerative endplate changes including modic endplate changes with anterior and lateral osteophytes throughout the lumbar spine. The visualized distal spinal cord and conus medullaris are within normal limits. The conus medullaris appears to terminate within normal limits. The visualized retroperitoneal and paraspinal soft tissues are unremarkable. The following axial levels are detailed below: T12-L1: There is a mild circumferential disc bulge. No significant central canal or neuroforaminal stenosis. L1-L2: There is a moderate circumferential disc bulge associated with mild to moderate bilateral neuroforaminal stenosis. No significant central canal stenosis. L2-L3: There is a moderate circumferential disc bulge associated with mild to moderate bilateral neuroforaminal stenosis. No significant central canal stenosis. L3-L4: There is a moderate circumferential disc bulge associated with mild to moderate bilateral neuroforaminal stenosis. Central canal measures 9 mm. L4-L5: There is a severe circumferential disc bulge narrowing the central canal to 7 mm with associated moderate bilateral neuroforaminal stenosis. L5-S1: There is a moderate circumferential disc bulge associated with mild to moderate bilateral neuroforaminal stenosis. No significant central canal stenosis. IMPRESSION: 1. Multilevel degenerative disease. Severe central canal stenosis L4-5. Mild central canal stenosis L3-4. Multilevel neural foraminal stenosis as above. HS:Y ATED BY: ALBERT SANDERS MD DICTATED DATE/TIME: 06/16/241531 SIGNED BY: ALBERT SANDERS MD SIGNED DATE/TIME: 06/16/241531 CC: [place] [address] Ph: [phone] DIAGNOSTIC IMAGING Diagnostic Imaging Report : [id number] Signed PATIENT: ION GUILLEN ACCT: [id number] UNIT: [id number] : 1985 LOC: [facility] ROOM / BED: [facility] / A AGE / SEX: 39 / M ADM STATUS: ADM IN SERVICE 1348 ORDERING PHYSICIAN: YAJAIRA PENALOZA MD PROCEDURE(s): MRIABDPW/W - MRI ABD & PLEVIS W/WO CONT REASON: ORDER NUMBER(s): [id number], ACCESSION NUMBER(s): [id number] MRI Abdomen, with and without IV Contrast Exam Date: 06/16/2024 02:25 PM Comparison: None History: Right flank pain, right back pain Technique: Multisequence multiplanar MRI images were obtained of the abomen. 20 mL of clariscan was administered intravenously during this examination. Initial imaging is obtained without intravenous contrast. Findings: Liver: Less than 5 mm hepatic cysts. Spleen: Unremarkable. Pancreas: The pancreas is normal in appearance without focal lesions. Gallbladder and ducts: Gallbladder is normal in appearance. The cystic duct, right and left hepatic ducts, common hepatic duct, and common bile ducts are unremarkable. The pancreatic duct is within normal limits. Adrenal glands: Unremarkable. Kidneys: Normal enhancement without suspicious lesions or hydronephrosis. Visualized bowel: Grossly unremarkable. Vasculature: Unremarkable. Lymphadenopathy: No evidence for lymphadenopathy. Ascites: Absent. Musculoskeletal: Degenerative changes in the lumbar spine. IMPRESSION: 1. Few punctate hepatic cysts. Otherwise unremarkable MRI of the abdomen. No hydronephrosis. Exam: MRI MRI ABD PLEVIS W/WO CONT History: Right flank pain, right back pain Comparison: None Technique: Multisequence multiplanar MRI images of the pelvis were performed. CONTRAST: Type of contrast: Clariscan Contrast injected: 20 ml Findings: Bladder: Unremarkable. Visualized bowel: Visualized portion of the bowel is grossly unremarkable without evidence for obstruction. Pelvic organs: Unremarkable Lymphadenopathy: No evidence for pelvic lymphadenopathy. Vasculature: There is normal enhancement of the pelvic vasculature. Ascites: Absent. Musculoskeletal: The bone marrow signal is preserved. IMPRESSION: 1. Unremarkable pelvic MRI. HS:Y ATED BY: ALBERT SANDERS MD DICTATED DATE/TIME: 06/16/24 160 SIGNED BY: ALBERT SANDERS MD SIGNED DATE/TIME: 06/16/24 160 CC: Condition at Discharge: Good Final Diagnosis/Problems List Intractable abdominal pain, likely due to gallbladder polyp/radiated from due to spinal stenosis Lumbar spinal stenosis Spinal degenerative disc disease Gallbladder polyp Ruled out cholelithiasis Ruled out renal stone Hypertension Chronic knee pain Hypokalemia Discharge Disposition: Home Discharge Instruct/Medications Diet: Consistent carbohydrate Diet comment: Diabetic diet Activity: No Restrictions, As Tolerated Follow Up/Referral: Follow up with the PCP within 1 week after discharge. Follow up with the neurosurgery on an outpatient basis. Medications: Tablet ibuprofen for the back pain, as needed Protonix 40 mg as needed for the heartburn Flexeril t.i.d., as needed Discharge Statement: "Patient was advised to return to the ER or call 911 if any headaches, dizziness, shortness of breath, chest pain, abdominal pain, bleeding, fevers, or worsening of medical condition. Patient was counseled about treatment plan, medications, possible side effects, patientverbalized understanding. All questions were answered to the best of my ability. This discharge took greater then 30 minutes in planning, reviewing documentation, counseling the patient, and discussing with other team members." ASSESSMENT ASSESSMENT Assessment Lumbar spinal stenosis CRUZITO JAY [facility] Jun 17, 2024 20:39
== END 2024-06-17 15:42 | disposition home or self-care (01) | DRG 446 ==
LOC: ER 10:40 → OVERFLOW 17:21 → WEST WING 06-16 03:18
PROVIDERS: ADMIT Student in an Organized Health Care Education/Training Program; ATTEND Student in an Organized Health Care Education/Training Program
DX: K82.4 Cholesterolosis of gallbladder (principal); I10 Essential (primary) hypertension; G89.29 Other chronic pain; K82.8 Other specified diseases of gallbladder; E87.6 Hypokalemia; M48.061 Spinal stenosis, lumbar region without neurogenic claudication; Z79.899 Other long term (current) drug therapy
CPT/HCPCS: 36415; 72148; 72195; 74176; 74181; 76700; 80053; 80320; 81001; 83690; 85025; 87081; 93005; 96374; G0378; J1885; J2405